=== PATIENT | male | born 1995 | race Caucasian/White ===

== ENCOUNTER 2016-11-30 11:29 | Day surgery (SDC) | payer BC ==
--- NOTE | 2016-11-24 10:17 | HP ---
HISTORY AND PHYSICAL: DATE OF PLANNED ADMISSION AND SURGERY: 11/30/16 HISTORY OF PRESENT ILLNESS: Mr. Horvath is a 21-year-old white male who is admitted with a right ureteral calculus for shockwave lithotripsy and placement of right ureteral stent. Mr. Horvath is a known stone former and had previously passed his stones spontaneously. 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 He had been managed with diet, increased fluid intake and Potassium Citrate 20mEq b.i.d.. The patient was doing fine until about 6 weeks ago when he presented to [facility] with symptoms of right renal colic. He had a noncontrast CT of the abdomen and pelvis, which showed right hydronephrosis and an obstructing 4-mm proximal right ureteral calculus. Bilateral nephrolithiasis were also noted. The patient was managed conservatively. He has been having on and off mild episodes of flank pain, but no recurrence of the acute colic. He had a renal ultrasound in the office, which showed mild right hydronephrosis. There was a 5 mm calculus in each kidney. Full bladder ultrasound was normal showing bilateral jets. The patient then had a KUB, which showed a 6 mm calculus in the proximal right ureter corresponding to the calculus that was seen on the CT scan. PAST MEDICAL HISTORY AND SYSTEM REVIEW: Otherwise negative. He is in excellent health. MEDICATIONS: His only medication is potassium citrate for his stone disease. ALLERGIES: He denies any allergies to medications. PHYSICAL EXAMINATION GENERAL: Pleasant, healthy, and fit-looking young man. VITAL SIGNS: Blood pressure 120/80, pulse of 64, temperature 96.5. LUNGS: Clear. HEART: Regular and rhythmic, no murmurs. ABDOMEN: Soft. No CVA tenderness and no abdominal tenderness. LABORATORY DATA: His urinalysis showed trace blood, negative otherwise. IMPRESSION: A 6-mm calculus in the proximal right ureter with only minimal progression of the passage of the stone over the last 6 weeks. PLAN: Considering the above, the plan is for shockwave lithotripsy of the right ureteral calculus followed by a placement of right ureteral stent. I discussed the above plans in detail with the patient and his friend and all his questions were answered. [id number]/[facility] #: [id number] [facility]
[~2016-11-30 11:29] MED LIST: Buffered Lidocaine 0.9% SYRIN* 5 ML/SYR SYRINGE INTRADERM ONE; Dexamethasone IV* 4 MG/ML 1 ML (4 MG) IV SLOW PU ONE; Famotidine IV* 10 MG/ML 2 ML (20 mg) IV ONE
[2016-11-30] MEDS ORDERED: Famotidine IV* 10 MG/ML 2 ML (20 mg) ONE (11:59)
[2016-11-30] MEDS ORDERED: Buffered Lidocaine 0.9% SYRIN* 5 ML/SYR SYRINGE ONE (11:59)
[2016-11-30] MEDS ORDERED: Dexamethasone IV* 4 MG/ML 1 ML (4 MG) ONE (11:59)
[2016-11-30] MEDS ORDERED: cefTRIAXone VIAL(*) 1,000 MG in NS 0.9% 50 ML* 50 ML IVPB ONE (12:00)
--- NOTE | 2016-11-30 12:03 | RAD ---
INDICATION: Kidney stones. COMPARISON: Comparison is made with prior study from November 23, 2016. TECHNIQUE: Frontal supine films of the abdomen were obtained. FINDINGS: The small bowel and colon appear nondistended. There are several locations which project over the right kidney. There is also a calcification that projects medial to the right kidney and a second calcification located inferior to the kidney measuring 5 mm in size at the L3-L4 level which is unchanged possibly representing ureteral calculi. IMPRESSION: RIGHT RENAL AND POSSIBLE URETERAL CALCULI, UNCHANGED.
[2016-11-30] MEDS ORDERED: Midazolam* 1 MG/ML 5 ML VIAL (5 MG) ONE (13:22)
[2016-11-30] MEDS ORDERED: fentaNYL* 50 MCG/ML 2 ML VIAL (100 MCG VIAL) ONE ×3 (13:22→14:25)
[2016-11-30] MEDS ORDERED: Ondansetron INJ* 2 MG/ML VIAL ONE ×2 (13:43→16:27)
[2016-11-30] MEDS ORDERED: Ketorolac INJ* 30 MG/ML 1 ML VIAL ONE (13:43)
[2016-11-30] MEDS ORDERED: Propofol* 10 MG/ML 20 ML BTL IV PUSH ONE (13:43)
[2016-11-30] MEDS ORDERED: Lidocaine 2% PF * 5 ML VIAL ONE (13:43)
[2016-11-30] MEDS ORDERED: Glycopyrrolate IV* 0.2 MG/ML 1 ML VIAL ONE (14:17)
[2016-11-30] MEDS ORDERED: Ondansetron INJ* 2 MG/ML VIAL IV PRN (15:04)
[2016-11-30] MEDS ORDERED: oxyCODONE/Acetamin 5/325 MG* TAB PO PRN (15:04)
[2016-11-30] MEDS ORDERED: DiMENhydriNATE IV* 50 MG/ML VIAL IV PUSH ONE (16:43)
[2016-11-30] MEDS ORDERED: Scopolamine 1.5 mg* PATCH ONE (16:45)
[2016-11-30] MEDS ORDERED: DiMENhydriNATE IV* 50 MG/ML VIAL ONE (16:45)
[2016-11-30] MEDS ORDERED: Scopolamine 1.5 mg* PATCH TRANSDERM SCH (17:00)
[2016-11-30] MEDS ORDERED: Scopolomine PATCH Remove* 1 NOTE MISC PATCH OFF SCH (17:00)
[2016-11-30 17:36] VITALS: BP 128/80
--- NOTE | 2016-12-01 14:59 | OP ---
CC: Dr. Tab Perry * DATE OF OPERATION: 11/30/16 - [facility] DATE OF : 89 SURGEON: Jcarlos Euceda MD ANESTHESIOLOGIST: Dr. Neftaly Borjas. ANESTHESIA: General. PRE-OP DIAGNOSIS: Proximal right ureteral calculus (6 mm). POST-OP DIAGNOSIS: Proximal right ureteral calculus (6 mm). OPERATIVE PROCEDURE: 1. Cystoscopy. 2. Right ureteroscopy, and Laser lithotripsy of a right ureteral calculus. 3. Right retrograde pyelography and placement of right ureteral stent (6-Latvian ). INDICATION FOR PROCEDURE: Mr. Horvath is a 21-year-old white male, who is a known stone former, who presented to [facility] about 6 weeks ago with symptoms of right renal colic. He had a noncontrast CT of the abdomen and pelvis, which showed a 4 mm calculus in the proximal right ureter associated with mild-to- moderate hydronephrosis. The patient was managed conservatively. He kept on having some episodes of Rt flank pain. He was evaluated in my office last week and had a KUB which showed a 6 mm calculus between L3 and L4. Because of the above history and the fact that the stone has not moved in 6 weeks, patient was initially admitted for stent placement and shock wave lithotripsy. PATHOLOGY AT CYSTOSCOPY: The penile and bulbar urethra looked normal. The bladder wall looked normal. There was a single orifice on each side. Following placement of the guidewire the stone migrated and was overlying the transverse process of L3. This was not felt to be a good position to perform shock wave lithotripsy and decision was made to proceed with ureteroscopy. At ureteroscopy the ureteral wall looked normal. The calculus was identified, at the level of the junction between the proximal and the middle thirds of the ureter. The calculus had the appearance of a calcium oxalate stone. It fragmented well with the laser treatment. Right retrograde pyelography showed mild right hydronephrosis. DESCRIPTION OF PROCEDURE: After successful general anesthesia, the patient was placed in the lithotomy position and was prepped and draped for cystoscopy. Cystoscopy was performed. The bladder was carefully inspected and the above findings were noted. A flexible tip guidewire was then placed into the right orifice and was positioned in the area of the renal pelvis. This was done under fluoroscopy guidance and the calculus was seen to have moved and was anterior to the transverse process of L3. This was not thought to be a good position for shock wave lithotripsy. Decision was then made to proceed with ureteroscopy. The 6.5-semirigid ureteroscope was introduced under direct vision inside the bladder. A flexible tip basket was then introduced through the port of the ureteroscope and its flexible tip was passed inside the right ureter and was used as a guide to introduce the ureteroscope with minimal trauma to the ureter. The ureteroscope was then passed without difficulty and without any trauma all the way into the proximal ureter where the calculus was identified. The calculus was adherent to the ureteral wall. It was instrumented with a basket and was successfully disimpacted. The stone was then engaged in the basket and was gently pulled down into the distal third of the ureter about 3 to 4 cm proximal to the ureteral orifice. A 550 micron laser fiber was then introduced through the other port of the ureteroscope. With the stone held within the basket, the stone was broken into multiple fragments, and the fragments were extracted. Final inspection of the ureter showed no evidence of any injury, and no significant residual stone fragments. The cystoscope was then fed over the guidewire. Retrograde pyelography was performed. A size 6-Latvian stent was then placed with the proximal end coiling in the renal pelvis and the distal end coiling inside the bladder. Some of the broken fragments of the stone inside the bladder wall were then extracted and sent for stone analysis. The patient tolerated the procedure well and left the operating room in good condition. The plan is to see the patient next week in my office and the stent will be removed under local anesthesia. [id number]/[facility] #: [id number] [facility]
== END 2016-11-30 17:36 | disposition home or self-care (01) ==
LOC: OR 11:29
PROVIDERS: ATTEND Urology
DX: N13.2 Hydronephrosis with renal and ureteral calculous obstruction (principal)
CPT/HCPCS: 74000; 82365; 88300; A9270-GY; C1876; J0696; J1100; J1240; J1885; J2250; J2405; J2704; J3010

== ENCOUNTER 2019-06-07 06:59 | Day surgery (SDC) | payer OTHER ==
--- NOTE | 2019-06-05 21:02 | HP ---
CC: Dr. Tab Perry * HISTORY AND PHYSICAL: DATE OF PLANNED ADMISSION AND SURGERY: 06/07/19 HISTORY OF PRESENT ILLNESS: Mr. Horvath is a 24-year-old white male who is admitted with a mid left ureteral calculus for cystoscopy, left ureteroscopy, laser lithotripsy, and left ureteral stent insertion. Mr. Horvath is a known stone former and had undergone a right ureteroscopy for an obstructing 6-mm calculus in October 2016. At that time, the stone analysis showed it to be a mixture of calcium phosphate and calcium oxalate, and his metabolic workup was consistent with partial renal tubular acidosis. He had been managed on potassium citrate 20 mEq twice a day. He is also known to have a 6-mm calculus in his left kidney. The patient presented to the office last week with symptoms of left renal colic of several days' duration. He did not have any fever or chills. The episodes of pain were rather severe but manageable as outpatient. Last week, he had a renal ultrasound which showed mild left hydronephrosis and a 7-mm calculus located in the proximal half of the left ureter. He was continued to be managed conservatively and was placed on tamsulosin and pain medications as needed. He was reevaluated this week. He continued to have on and off episodes of left flank pain and repeat renal ultrasound showed the stone to be in the same position associated with mild left hydronephrosis. With the above history, the size of the stone, and after discussing the options of management, endoscopic stone extraction was advised and accepted. PAST MEDICAL HISTORY AND SYSTEM REVIEW: He is in excellent health. MEDICATIONS: He is on no other chronic medications. ALLERGIES: He denies any allergies to medications. FAMILY HISTORY: Family history is relevant for renal calculus disease on both sides of his family. SOCIAL HISTORY: He is a nonsmoker. He denies any drug intake. No history of mental health problems. PHYSICAL EXAMINATION GENERAL: He is a pleasant and healthy, fit looking young man. VITAL SIGNS: Blood pressure 120/70, pulse of 66, temperature 97. LUNGS: Clear. HEART: Regular and rhythmic. No murmurs. ABDOMEN: Soft. No masses. No tenderness. There is minimal left CVA tenderness. IMPRESSION: 1. History of renal calculus disease, on potassium citrate. 2. 7-mm calculus in the proximal half of the left ureter associated with mild left hydronephrosis, causing intermittent episodes of left flank pain. PLAN: Cystoscopy, left ureteroscopy, laser lithotripsy, and left ureteral stent insertion. I discussed the above plans in detail with the patient and his mother. They both understand that if the calculus cannot be safely reached with the ureteroscopy then the procedure will be staged with placement of a ureteral stent followed at a later date by the lithotripsy. All their questions were answered. [id number]/[facility] #: [id number] [facility]
[~2019-06-07 06:59] MED LIST changes: -Buffered Lidocaine 0.9% SYRIN* 5 ML/SYR SYRINGE INTRADERM ONE; +Buffered Lidocaine 1% SYRIN* 1 ML/SYRINGE INTRADERM ONE; -Dexamethasone IV* 4 MG/ML 1 ML (4 MG) IV SLOW PU ONE; -Famotidine IV* 10 MG/ML 2 ML (20 mg) IV ONE; +Lactated Ringers 1000 ML Bag* 1,000 ML IV SCH
[2019-06-07] MEDS ORDERED: cefTRIAXone(*) 2 GM ADDV.VIAL IVPB ONE (07:59)
[2019-06-07] MEDS ORDERED: Lidocaine 2% PF * 5 ML VIAL ONE (08:18)
[2019-06-07] MEDS ORDERED: Propofol* 10 MG/ML 20 ML BTL ONE (08:18)
[2019-06-07] MEDS ORDERED: Midazolam* 1 MG/ML 2 ML VIAL (2 MG) ONE (08:18)
[2019-06-07] MEDS ORDERED: fentaNYL* 50 MCG/ML 2 ML VIAL (100 MCG VIAL) ONE (09:09)
[2019-06-07] MEDS ORDERED: Ketorolac INJ* 30 MG/ML 1 ML VIAL ONE (09:19)
[2019-06-07] MEDS ORDERED: Metoclopramide IV* 5 MG/ML 2 ML VIAL ONE (09:19)
[2019-06-07] MEDS ORDERED: Dexamethasone IV* 4 MG/ML 1 ML (4 MG) ONE (09:19)
[2019-06-07] MEDS ORDERED: Ondansetron INJ* 2 MG/ML VIAL ONE (09:19)
[2019-06-07] MEDS ORDERED: Succinylcholine* 20 MG/ML 10 ML VIAL ONE (09:23)
[2019-06-07] MEDS ORDERED: Naloxone* 0.4 MG/ML 1 ML VIAL IV PRN (10:35)
[2019-06-07] MEDS ORDERED: oxyCODONE TAB* 5 MG TAB PO PRN (10:35)
[2019-06-07] MEDS ORDERED: DiMENhydriNATE IV* 50 MG/ML VIAL IV PUSH PRN (10:35)
[2019-06-07] MEDS ORDERED: fentaNYL* 50 MCG/ML 2 ML VIAL (100 MCG VIAL) IV PRN (10:35)
[2019-06-07 12:09] VITALS: BP 126/98
--- NOTE | 2019-06-07 19:33 | OP ---
CC: Dr. Tab Perry * DATE OF OPERATION: 06/07/19 - [facility] DATE OF : 89 SURGEON: Jcarlos Euceda MD ANESTHESIOLOGIST: Dr. Kothari. ANESTHESIA: General. PRE-OP DIAGNOSIS: Left ureteral calculus (7 mm). POST-OP DIAGNOSIS: Left ureteral calculus, 7 mm (at the level of sacroiliac joint). OPERATIVE PROCEDURE: 1. Cystoscopy. 2. Left ureteroscopy, laser lithotripsy. 3. Left retrograde pyelography and insertion of left ureteral stent (7-Romanian). INDICATION FOR PROCEDURE: Mr. Horvath is a 24-year-old white male who is a known stone former and who presented to the office with recurrent episodes of left flank pain. Renal ultrasound showed left hydronephrosis and a 7 mm ureteral calculus at the level of the sacroiliac joint. After initial conservative management, the patient continued to have pain and the stone was still in the same position. Because of that finding and history, the patient is brought in for endoscopic stone treatment. PATHOLOGY: At cystoscopy, the penile and bulbar urethrae looked normal. The prostatic urethra was short and open. The ureteral orifices looked normal. There were no suspicious bladder lesions seen. At left ureteroscopy, there was a 7 mm calculus noted at the level of the sacroiliac joint. The calculus could not be seen on fluoroscopy nor on KUB because of its location over bone. The calculus looked impacted and had the appearance of either a calcium oxalate or calcium phosphate stone. There was moderate proximal left hydroureteronephrosis. DESCRIPTION OF PROCEDURE: After successful general anesthesia, the patient was placed in the lithotomy position and was prepped and draped for a cystoscopy. Cystoscopy was performed, the bladder was inspected and the above findings were noted. A flexible-tip hybrid guidewire was then introduced into the left orifice and positioned in the area of the renal pelvis. A size 6.5 semi-rigid ureteroscope was then introduced inside the bladder. A flexible-tip basket was introduced through the port of the ureteroscope and its flexible tip was introduced into the left ureter alongside the guidewire. That allowed the atraumatic introduction of the ureteroscope inside the ureter. The ureteroscope was introduced carefully until the stone was visualized. The stone was gently disimpacted and was engaged in the basket to avoid its proximal migration. A size 550 micron laser fiber was then introduced through the other port of the ureteroscope and the stone was broken into multiple fragments using the laser energy. Care was taken not to damage the ureteral wall. The larger fragments of the stone were then extracted with the basket and sent for stone analysis. Ureteroscopy was then repeated and the ureteral wall at the site of the calculus and the laser treatment was visualized. There was the expected edema and abrasion of the mucosa from the impacted stone, but there was no evidence of any perforation. The ureteroscope was then removed keeping the guidewire in place. The cystoscope was introduced over the guidewire. An open-ended catheter was fed on top of the guidewire and positioned in the distal ureter. Retrograde pyelography was performed demonstrating the site of the ureteroscopy and lithotripsy and there was no evidence of any extravasation. A size 7-Romanian stent was then placed with the proximal end coiling in the collecting system and the distal end coiling inside the bladder. There was good drainage of contrast from the kidney and no extravasation. The patient tolerated the procedure well and left the operating room in good condition. The plan is to leave the stent in place for about 10 to 12 days. It will be removed in the office under local anesthesia. [id number]/[facility] #: [id number] [facility]
== END 2019-06-07 12:18 | disposition home or self-care (01) ==
LOC: OR 06:59
PROVIDERS: ATTEND Urology
DX: N13.2 Hydronephrosis with renal and ureteral calculous obstruction (principal); F32.9 Major depressive disorder, single episode, unspecified; J30.1 Allergic rhinitis due to pollen
CPT/HCPCS: 74018; 74420; 82365; 88300; C1876; J0330; J0696; J1100; J1885; J2250; J2405; J2704; J2765; J3010